=== PATIENT | female | born 1940 | race Caucasian/White ===

== ENCOUNTER 2024-07-23 11:11 | Emergency (ER) | payer SELFPAY ==
[2024-07-23 11:15] VITALS: BP 164/81
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
[2024-07-23] MEDS: TYLENOL 650 MG PO (14:17)
[2024-07-23 14:23] LABS: Glucose - Point of Care 66 mg/dl (70-99)
[2024-07-23 14:24] VITALS: BP 167/72
[2024-07-23 14:42] LABS: Glucose - Point of Care 78 mg/dl (70-99)
[2024-07-23 16:26] LABS: Glucose - Point of Care 106 mg/dl (70-99)
[2024-07-23 16:45] VITALS: BP 145/67
== END 2024-07-23 16:45 | disposition home or self-care (01) ==
LOC: EMR 11:11
PROVIDERS: EMERGENCY PHYSICIAN Emergency Medicine; FAMILY PHYSICIAN Internal Medicine
DX: S82.141A Displaced bicondylar fracture of right tibia, initial encounter for closed fracture (principal); S90.32XA Contusion of left foot, initial encounter; V03.90XA Pedestrian on foot injured in collision with car, pick-up truck or van, unspecified whether traffic or nontraffic accident, initial encounter
CPT/HCPCS: 99284; 29505; 70450; 72125; 73564; 73630; 73700; 82962

== ENCOUNTER 2025-06-15 13:36 | Emergency (ER) | payer MEDICARE, SELFPAY ==
[2025-06-15 13:39] VITALS: BP 148/66
[2025-06-15 14:36] VITALS: BMI 27.5
--- NOTE | 2025-06-15 15:14 | ED.GENMED ---
History of Present Illness
General
Chief Complaint: Fall
Source: patient
Time Seen by Provider: 06/15/25 14:02
History of Present Illness
History of Present Illness:
85-year-old female presents to the emergency room complaining of left-sided chest wall pain. Patient states she was walking her dog last night at 730 when she tripped over a curb. She fell with her left arm under her breast. She has pain in this
area. No shortness of breath. No abdominal pain. She does not take any oral anticoagulants that she does take 160 mg of baby aspirin a day. She did have trouble sleeping last night due to the pain. She took ibuprofen this morning which helped.
An ice pack also helped.
Phy Exam
Physical Exam
Physical Exam:
General: Awake, Alert, Oriented X3. No acute distress.
Vitals: unremarkable
Head: Atraumatic
Eyes: Pupils equal, EOMI
Throat: Airway intact, no exudates
Neck: Trachea midline
Chest: Tenderness palpation over the lower left anterior thorax. No crepitance. No step-offs.
Lungs: Clear and equal b/l
Heart: Regular rate, no murmurs
Neuro: Nonfocal
Skin: Warm, dry, no rash
Extremities: pulses equal b/l, no edema
Course
Orders/Labs/Results
Orders:
Orders
06/15/25 13:42
CR Ribs-left 3 Vw W/pa Chest Urgent
Comment:
Reason For Exam: fall
Vital Signs
Initial and Last Documented VS:
Initial Vital Signs
Temp Pulse Resp BP Pulse Ox
98.3 F 63 16 148/66 96
06/15/25 13:39 06/15/25 13:39 06/15/25 13:39 06/15/25 13:39 06/15/25 13:39
Last Documented Vital Signs
Temp Pulse Resp BP Pulse Ox
98.3 F 63 16 148/66 96
06/15/25 13:39 06/15/25 13:39 06/15/25 13:39 06/15/25 13:39 06/15/25 13:39
MDM/Problems Addressed
Differential Diagnosis Includes:
Chest wall contusion, rib fracture, pneumothorax
MDM/Problems Addressed:
No fracture or pneumothorax noted on x-ray. Patient's abdominal exam is benign. Suspect chest wall contusion. Tylenol and ibuprofen for pain
*Radiology
Radiology exam reviewed: preliminary read by ED provider (No acute fracture or pneumothorax noted on my review of the patient's chest x-ray)
*Pulse Oximetry
SaO2: 96
Oxygen Mode of Delivery: Room air
Patient hypoxic: no
*Critical Care Note
Total Time (30-74mins, 75-104mins- exclusive of procedures): Not Applicable
ED Attending Note
-
Portions of this chart may have been created with voice recognition software.� Occasional wrong word or��sound alike� substitutions may have occurred due to the inherent limitations of voice recognition software.
Discharge Plan
Departure
Patient Disposition: Home (Routine Discharge)
Date of Disposition: 06/15/25
Time of Disposition: 15:16
Patient with high blood pressure during this ER visit?: Yes
Condition: Good
Discharge Problem:
Chest wall contusion
Instructions: Blunt chest trauma - ED (DC), BLOOD PRESSURE
Referrals:
Charla Clayton MD [Family Provider, Internal Medicine]
Interventions
Interventions:
*Risk Screen - Suicide Last Done: 06/15/25 13:39
*General Assessment Last Done: 06/15/25 13:39
*Neglect/Abuse Screening Last Done: 06/15/25 13:39
*ED- Fall Risk Assessment Last Done: 06/15/25 14:37
*ED COVID-19 Vaccine History Last Done: 06/15/25 13:39
*ED Influenza Vaccine History Last Done: 06/15/25 13:39
ED-Musculoskeletal Assessment Last Done: 06/15/25 14:37
ED- Neurological Assessment Last Done: 06/15/25 14:37
ED-Skin Assessment Last Done: 06/15/25 14:37
Discharge Date and Time
Print Language: ROMANSH
== END 2025-06-15 15:24 | disposition home or self-care (01) ==
LOC: EMR 13:36
PROVIDERS: EMERGENCY PHYSICIAN Emergency Medicine; FAMILY PHYSICIAN Internal Medicine
DX: S20.212A Contusion of left front wall of thorax, initial encounter (principal); W18.09XA Striking against other object with subsequent fall, initial encounter; Y93.K1 Activity, walking an animal
CPT/HCPCS: 99283; 71101